=== PATIENT | female | born 1985 | race Caucasian/White ===

== ENCOUNTER → 2019-04-27 | Emergency (ER) | payer OTHER ==
[~2019-04-27] VITALS: Ht 167.6 cm; Wt 70.8 kg
--- NOTE | 2019-04-27 11:19 | NUR ---
Patient discharged to home in stable condition. Written and verbal after care instructions given. Patient verbalizes understanding of instruction.
[2019-04-27 11:24] VITALS: BP 113/65
== END | disposition home or self-care (01) ==
LOC: ER 11:48
DX: F41.0 Panic disorder [episodic paroxysmal anxiety] (principal)
CPT/HCPCS: J7030